=== PATIENT | male | born 1985 | race African-American/Black ===

== ENCOUNTER 2017-07-05 08:39 | Inpatient (IN) | payer MEDICAID ==
[~2017-07-05] VITALS: Ht 182.9 cm; Wt 99.0 kg
[2017-07-05] MEDS ORDERED: OLANZapine IM 10 MG VIAL IM ONE (08:45)
--- NOTE | 2017-07-05 09:01 | PD ---
HPI Chief Complaint: Medical Clearance Time Seen by Provider: 08:58 Travel History International Travel<30 days: No Contact w/Intl Traveler<30days: No Traveled to known affect area: No History of Present Illness HPI 31-year-old male with history of bipolar and schizophrenia, presents emergency department voluntarily for psychiatric evaluation. Patient states he has been using meth. He feels as though he is in the matrix. He states that he is tired of feeling weak and no longer wants to live. Denies any active plan of suicide to me however EVAC brine process operator advised that he had mentioned hanging. Patient states he last used methamphetamine 4 hours ago. Denies any chest pain or tightness. No difficulty breathing. He has no other acute medical needs at this time. [facility] Past Medical History Bipolar Disorder: Yes Social History Alcohol Use: Yes Tobacco Use: Yes Substance Use: Yes Allergies-Medications (Allergen,Severity, Reaction): Coded Allergies: No Known Allergies (Unverified , 07/05/17) Review of Systems Except as stated in HPI: all other systems reviewed are Neg Physical Exam Narrative GENERAL: Well-nourished male patient, with bizarre affect, agitated, in no acute distress. SKIN: Focused skin assessment warm/dry. HEAD: Atraumatic. Normocephalic. EYES: Pupils equal and round. No scleral icterus. No injection or drainage. ENT: No nasal bleeding or discharge. Mucous membranes pink and moist. NECK: Trachea midline. No JVD. CARDIOVASCULAR: Regular rate and rhythm. No murmur appreciated. RESPIRATORY: No accessory muscle use. Clear to auscultation. Breath sounds equal bilaterally. GASTROINTESTINAL: Abdomen soft, non-tender, nondistended. Hepatic and splenic margins not palpable. MUSCULOSKELETAL: No obvious deformities. No clubbing. No cyanosis. No edema. NEUROLOGICAL: Awake and alert. No obvious cranial nerve deficits. Motor grossly within normal limits. Normal speech. Data Data Last Documented VS Vital Signs Date Time Temp Pulse Resp B/P (MAP) Pulse Ox O2 Delivery O2 Flow Rate FiO2 07/05/17 11:25 78 16 126/71 (89) 99 Room Air 07/05/17 09:15 99.0 Orders Orders Complete Blood Count With Diff (07/05/17 08:44) Thyroid Stimulating Hormone (07/05/17 08:44) Basic Metabolic Panel (Bmp) (07/05/17 08:44) Psych Screen (07/05/17 08:44) Drug Screen, Random Urine (07/05/17 08:44) Alcohol (Ethanol) (07/05/17 08:44) Olanzapine Inj (Zyprexa Inj) (07/05/17 08:45) Labs Laboratory Tests Test 07/05/17 09:20 07/05/17 13:00 White Blood Count 7.4 TH/MM3 Red Blood Count 4.67 MIL/MM3 Hemoglobin 13.4 GM/DL Hematocrit 38.1 % Mean Corpuscular Volume 81.5 FL Mean Corpuscular Hemoglobin 28.7 PG Mean Corpuscular Hemoglobin Concent 35.2 % Red Cell Distribution Width 14.6 % Platelet Count 285 TH/MM3 Mean Platelet Volume 7.1 FL Neutrophils (%) (Auto) 58.8 % Lymphocytes (%) (Auto) 27.5 % Monocytes (%) (Auto) 12.5 % Eosinophils (%) (Auto) 0.5 % Basophils (%) (Auto) 0.7 % Neutrophils # (Auto) 4.4 TH/MM3 Lymphocytes # (Auto) 2.0 TH/MM3 Monocytes # (Auto) 0.9 TH/MM3 Eosinophils # (Auto) 0.0 TH/MM3 Basophils # (Auto) 0.0 TH/MM3 CBC Comment DIFF FINAL Differential Comment Blood Urea Nitrogen 10 MG/DL Creatinine 1.59 MG/DL Random Glucose 80 MG/DL Calcium Level 8.4 MG/DL Sodium Level 141 MEQ/L Potassium Level 3.2 MEQ/L Chloride Level 108 MEQ/L Carbon Dioxide Level 24.0 MEQ/L Anion Gap 9 MEQ/L Estimat Glomerular Filtration Rate 61 ML/MIN Thyroid Stimulating Hormone 3rd Gen 1.990 uIU/ML Ethyl Alcohol Level LESS THAN 3 MG/DL Urine Opiates Screen NEG Urine Barbiturates Screen NEG Urine Amphetamines Screen NEG Urine Benzodiazepines Screen NEG Urine Cocaine Screen NEG Urine Cannabinoids Screen NEG MDM Medical Decision Making Medical Screen Exam Complete: Yes Emergency Medical Condition: Yes Medical Record Reviewed: Yes Differential Diagnosis Substance-induced mood disorder versus acute psychosis versus substance abuse Narrative Course 31-year-old male presents emergency department voluntarily for psychiatric evaluation. Patient is agitated when he comes to the ER initially. Tells me he feels like he is in a movie. He last used methamphetamine 4 hours ago. Patient is given Zyprexa to help reduce agitation. Laboratory Tests Test 07/05/17 09:20 07/05/17 13:00 White Blood Count 7.4 TH/MM3 Red Blood Count 4.67 MIL/MM3 Hemoglobin 13.4 GM/DL Hematocrit 38.1 % Mean Corpuscular Volume 81.5 FL Mean Corpuscular Hemoglobin 28.7 PG Mean Corpuscular Hemoglobin Concent 35.2 % Red Cell Distribution Width 14.6 % Platelet Count 285 TH/MM3 Mean Platelet Volume 7.1 FL Neutrophils (%) (Auto) 58.8 % Lymphocytes (%) (Auto) 27.5 % Monocytes (%) (Auto) 12.5 % Eosinophils (%) (Auto) 0.5 % Basophils (%) (Auto) 0.7 % Neutrophils # (Auto) 4.4 TH/MM3 Lymphocytes # (Auto) 2.0 TH/MM3 Monocytes # (Auto) 0.9 TH/MM3 Eosinophils # (Auto) 0.0 TH/MM3 Basophils # (Auto) 0.0 TH/MM3 CBC Comment DIFF FINAL Differential Comment Blood Urea Nitrogen 10 MG/DL Creatinine 1.59 MG/DL Random Glucose 80 MG/DL Calcium Level 8.4 MG/DL Sodium Level 141 MEQ/L Potassium Level 3.2 MEQ/L Chloride Level 108 MEQ/L Carbon Dioxide Level 24.0 MEQ/L Anion Gap 9 MEQ/L Estimat Glomerular Filtration Rate 61 ML/MIN Thyroid Stimulating Hormone 3rd Gen 1.990 uIU/ML Ethyl Alcohol Level LESS THAN 3 MG/DL Urine Opiates Screen NEG Urine Barbiturates Screen NEG Urine Amphetamines Screen NEG Urine Benzodiazepines Screen NEG Urine Cocaine Screen NEG Urine Cannabinoids Screen NEG Lab work is reviewed. Patient is medically cleared to undergo psychiatric screening for further evaluation and disposition. Mental health screening discussed with the patient. Psychiatric screen ordered. Diagnosis Primary Impression: Substance induced mood disorder Condition: Stable Alexandria Jacobo ERNA July 05, 2017 09:01
[2017-07-05 09:15] VITALS: BP 139/62; PULSE 88; RESP 20; TEMP 99; O2SAT 100
[2017-07-05 09:43] LABS: AUTOMATED NEUTROPHIL # 4.4 TH/MM3 (1.8-7.7); BASOPHIL % 0.7 % (0.0-2.0); EOSINOPHIL % 0.5 % (0.0-4.0); HEMATOCRIT 38.1 % (39.0-51.0); HEMOGLOBIN 13.4 GM/DL (13.0-17.0); LYMPH % 27.5 % (9.0-44.0); MEAN CELL VOLUME 81.5 FL (80.0-100.0); MEAN CORPUSCULAR HEMOGLOBIN 28.7 PG (27.0-34.0); MEAN CORPUSCULAR HGB CONC 35.2 % (32.0-36.0); MEAN PLATELET VOLUME 7.1 FL (7.0-11.0); MONO % 12.5 % (0.0-8.0); MONOCYTE # 0.9 TH/MM3 (0-0.9); NEUT % 58.8 % (16.0-70.0); PLATELET COUNT 285 TH/MM3 (150-450); RED BLOOD COUNT 4.67 MIL/MM3 (4.50-5.90); RED CELL DISTRIBUTION WIDTH 14.6 % (11.6-17.2); WHITE BLOOD COUNT 7.4 TH/MM3 (4.0-11.0)
[2017-07-05 10:03] LABS: BLOOD UREA NITROGEN 10 MG/DL (7-18); CALCIUM 8.4 MG/DL (8.5-10.1); CHLORIDE 108 MEQ/L (98-107); CREATININE 1.59 MG/DL (0.60-1.30); GLOMERULAR FILTRATION RATE 61 ML/MIN (>89); GLUCOSE,RANDOM 80 MG/DL (74-106); SODIUM (NA) 141 MEQ/L (136-145)
[2017-07-05 11:25] VITALS: BP 126/71; PULSE 78; RESP 16; O2SAT 99
[2017-07-05 18:24] VITALS: BP 121/66; PULSE 56; RESP 18; O2SAT 98
[2017-07-05] MEDS ORDERED: ABIL15TA3 PO (19:35)
[2017-07-05] MEDS ORDERED: REME15TA PO (19:36)
[2017-07-05] MEDS ORDERED: diphenhydrAMINE HCL 50 MG/ML VIAL IM ONE (21:30)
[2017-07-05] MEDS ORDERED: ZIPRASIDONE MESYLATE 20 MG VIAL IM ONE (21:30)
[2017-07-06 02:31] VITALS: RESP 20
[2017-07-06 18:42] VITALS: BP 108/53; PULSE 54; RESP 17; TEMP 99; O2SAT 99
[2017-07-06 22:32] VITALS: BP 162/92; PULSE 95; RESP 20; TEMP 99.4; O2SAT 97
--- NOTE | 2017-07-07 13:53 | PD.PSY.CON ---
Provisional Diagnosis Admission Date [place] I. Unspecified psychosis vs substance-induced psychosis vs schizophrenia, [place] II. Deferred [place] III. No significant medical history History of Present Illness Service Psychiatry Consult Requested By ER Reason for Consult Acute psychosis Primary Care Physician No Primary Care Physician HPI The patient is a 31-year-old -Micron[place] man, domiciled in [place], visiting family [place], single, unemployed, with self-reported psychiatric history of depression, schizophrenia, 2 previous psychiatric hospitalizations, no previous suicide attempts, the patient using Abilify 15 mg and Remeron 15 mg prescribed by private psychiatrist in [place], who has being in [facility] [facility] multiple times in the last week with different psychiatric and medical complaints, he has been diagnosed with antisocial personality disorder and malingering, no significant medical history, presenting to emergency department voluntarily for psychiatric evaluation. Patient states he has been using meth. He feels as though he is in the matrix. He states that he is tired of feeling weak and no longer wants to live. Denies any active plan of suicide to me however EVAC business analyst advised that he had mentioned hanging. Patient states he last used methamphetamine 4 hours ago. Denies any chest pain or tightness. No difficulty breathing. He has no other acute medical needs at this time. Posteriorly the patient endorses suicidal ideation and he was Clark acted by ER physician. As per collateral information from nurses in the ER the patient has being internally preoccupied, talking to himself and disorganized. On my psychiatric evaluation today the patient is found talking to himself. Making weird noises with his mouth. Not able to answer any of my questions. With multiple redirection the patient look at me and told me "Doctor I am crazy ". Patient has not been agitated or aggressive. Review of Systems Constitutional: DENIES: Diaphoretic episodes, Fatigue, Fever, Weight gain, Weight loss, Chills, Dizziness, Change in appetite, Night Sweats Endocrine: DENIES: Heat/cold intolerance, Polydipsia, Polyuria, Polyphagia Eyes: DENIES: Blurred vision, Diplopia, Eye inflammation, Eye pain, Vision loss , Photosensitivity, Double Vision Ears, nose, mouth, throat: DENIES: Tinnitus, Hearing loss, Vertigo, Nasal discharge, Oral lesions, Throat pain, Hoarseness, Ear Pain, Running Nose, Epistaxis, Sinus Pain, Toothache, Odynophagia Respiratory: DENIES: Apneas, Cough, Snoring, Wheezing, Hemoptysis, Sputum production, Shortness of breath Cardiovascular: DENIES: Chest pain, Palpitations, Syncope, Dyspnea on Exertion , PND, Lower Extremity Edema, Orthopnea, Claudication Genitourinary: DENIES: Sexual dysfunction, Urinary frequency, Urinary incontinence, Urgency, Hematuria, Dysuria, Nocturia, Penile Discharge, Testicular Pain, Testicular Swelling Musculoskeletal: DENIES: Joint pain, Muscle aches, Stiffness, Joint Swelling, Back pain, Neck pain Integumentary: DENIES: Abnormal pigmentation, Nail changes, Pruritus, Rash Hematologic/lymphatic: DENIES: Bruising, Lymphadenopathy Immunologic/allergic: DENIES: Eczema, Urticaria Neurologic: DENIES: Abnormal gait, Headache, Localized weakness, Paresthesias, Seizures, Speech Problems, Tremor, Poor Balance Psychiatric: DENIES: Anxiety, Confusion, Mood changes, Depression, Hallucinations, Agitation, Suicidal Ideation, Homicidal Ideation, Delusions Past Family Social History Coded Allergies: No Known Allergies (Unverified , 07/05/17) Reported Medications Mirtazapine (Remeron) 15 Mg Tab, 15 MG PO HS for Depression Control, #30 TAB 0 Refills 07/05/17 Aripiprazole (Abilify) 15 Mg Tab, 15 MG PO DAILY, #30 TAB 0 Refills 07/05/17 Family Psych History No family psychiatric history Social History Patient was born and raised in [place], is visiting family in [place], unemployed, single, highest level of education is GED Patient's Strengths (min. 2) Under observation Physical Exam No tremors, no EPS, no psychomotor agitation or retardation Vital Signs Vital Signs Date Time Temp Pulse Resp B/P (MAP) Pulse Ox O2 Delivery O2 Flow Rate FiO2 07/06/17 22:32 99.4 95 20 162/92 (115) 97 Room Air Mental Status Examination Appearance: Appropriate Consciousness: Alert Orientation: Person Motor Activity: Normal gait Speech: Unremarkable Language: Adequate Fund of Knowledge: Adequate Attention and Concentration: Adequate Memory: Unremarkable Mood: Irritable Affect: Irritable Thought Process & Associations: Loose associations Thought Content: Bizarre thinking, Hallucinations, Thought blocking Hallucination Type: None Delusion Type: None Suicidal Ideation: No Suicidal Plan: No Suicidal Intention: No Homicidal Ideation: No Homicidal Plan: No Homicidal Intention: No Insight: Poor Judgment: Poor Assessment & Plan Problem List: (1) Unspecified psychosis ICD Codes: F29 - Unspecified psychosis not due to a substance or known physiological condition Assessment & Plan: Psychiatric evaluation today the patient presents quite disorganized, internally preoccupied, making weird noises with his mouth, not able to answer most of my questions. As per nursing report the patient has being mostly asleep, secluded in his room, talking to himself. No agitation or aggressive behavior reported. The patient has initially reported he has been using amphetamines lately, even though his U tox is negative. The patient has been visiting they are frequently in the last 10 days with different medical and psychiatric complaints. At this point is unclear to me if his current presentation is related with a primary psychotic decompensation versus substance -induced psychosis. But, conscious simulation also should be taken in account due to the nature and evolution of the presentation. Patient benefits of psychiatric hospitalization in a dual diagnosis psychiatric unit. He will be presented to [facility] for psychiatric hospitalization. Will order Haldol 5 mg twice daily for psychosis. Assessment & Plan Estimated LOS: Jacky Ponce MD July 07, 2017 13:53
[2017-07-07 15:16] VITALS: BP 145/87; PULSE 106; RESP 18; TEMP 99.4; O2SAT 99
[2017-07-07] MEDS ORDERED: IBUPROFEN 800 MG TAB PO ONE (16:00)
[2017-07-08] MEDS ORDERED: diphenhydrAMINE HCL 50 MG/ML VIAL IM ONE (00:15)
[2017-07-08] MEDS ORDERED: HALOPERIDOL LACTATE 5 MG/ML AMP IM ONE (00:15)
[2017-07-08 05:23] VITALS: BP 128/58; PULSE 94; RESP 18; O2SAT 98
--- NOTE | 2017-07-08 08:21 | HHI.HP ---
Provisional Diagnosis Admission Date 07/08/2017 [place] I. 1. Adjustment disorder, unspecified Very strongly suspect malingering, most likely for penitentiary 2. Suspected substance (alcohol, methamphetamine) use disorder Bart[place] II. 1. Prominent antisocial personality traits Antisocial personality disorder suspected Certification of Person's Competence To Provide Express and Informed Consent I have personally examined Arden Barker , a person being served at [facility] on, July 08, 2017 08:20. Express and informed consent means consent voluntarily given in writing, by a competent person, after sufficient explanation and disclosure of the subject matter involved to enable the person to make a knowing and willful decision without any element of force, fraud, deceit, duress, or other form of constraint or coercion. This person is 18 years of age or older, is not now known to be incompetent to consent to treatment with a guardian advocate, and does not have a health care surrogate or proxy currently making medical treatment decisions. I have found this person to be one of the following: [x] Competent to provide express and informed consent, as defined above, for voluntary admission to this facility and is competent to provide express and informed consent for treatment. He/she has the consistent capacity to make well reasoned, willful, and knowing decisions concerning his or her medical or mental health treatment. The person fully and consistently understands the purpose of the admission for examination/placement and is fully capable of personally exercising all rights assured under [place] Incompetent to provide express and informed consent to voluntary admission, and this is incompetent to provide express and informed consent to treatment. The person must be transferred to involuntary status and a petition for a guardian advocate filed with the Circuit Court. [] Refusing to provide express and informed consent to voluntary admission but is competent to provide express and informed consent for treatment. The person must be discharged or transferred to involuntary status. Form shall be completed within 24 hours of a person's arrival at the receiving facility and filed in the clinical record of each person: 1. Admitted on a voluntary basis 2. Permitted to provide express and informed consent to his/her own treatment 3. Allowed to transfer from involuntary to voluntary status 4. Prior to permitting a person to consent to his or her own treatment after having been previously found incompetent to consent to treatment. History of Present Illness Capacity: Has Capacity Psych Chief Complaint: Threats of self-injury HPI Mr. Barker is a 31 year-old male with a self-reported history of schizophrenia and a chart history of antisocial personality, malingering and substance use issues who presented to the ED claiming recent methamphetamine ingestion (although UTox was negative). He told the ED provider that "he is tired of feeling weak and no longer wants to live." He was Clark Acted by the ED provider. He was seen in consultation by Dr. Contreras who recommended transfer to a dual diagnosis unit. At the time of my evaluation, the patient has been in the ED for ~70 hours, and no suitable facility has been identified. EMR reviewed. Patient seen and examined in J-Pod. Chart reviewed. Case discussed with nursing staff. Patient received Haldol and Benadryl IM overnight for reported agitation, although a corresponding nursing note that would indicate the exact nature of the agitation is not available for my review. At the time of my evaluation, patient is calm. He is a quite manipulative and vague historian. Antisocial personality traits are extremely prominent, and a diagnosis of Antisocial PD is suspected. He is entitled and dictating of care. He tells me that he wants me to get him a different room. He tells me he wants to be admitted and "take it day by day." He wishes to speak with a social worker psychiatric about obtaining housing. He has a dearth of psychiatric symptoms. He tells me that he is "feeling paranoid, like I'm gonna hang up." He reports having thoughts of jumping off of a bridge. He does not describe any urge to hurt himself on the inpatient psychiatric unit. He does not describe any homicidal ideation. He does not describe any audiovisual hallucinations, nor does he appear internally stimulated. I can elicit no srinivas gretta delusional material. I can elicit no depressive or hypomanic/manic symptoms, although his affect is somewhat dysphoric. Remainder of the psychiatric ROS is negative. No acute physical complaints. Past psychiatric history: The patient reports a history of schizophrenia. He follows with Dr. Mcarthur in [facility]. He reports that he was hospitalized about 6 months ago at a psychiatric facility on [address]. He reports a previous suicide attempt of cutting his left wrist with a razor, reportedly 2 days ago. However, I cannot appreciate any evidence of laceration or even a scratch in the area he demonstrates. Family history: Patient denies a family history of mental illness or suicide. Chemical dependency history: Patient reports that he is an occasional drinker, sometimes as much as a pint of liquor on a weekend. He reports possible history of withdrawal seizures but denies any history of DTs. He does not report any other substance use to me but have reported methamphetamine use to the ED provider as noted above. Social history: The patient moved from [place] 2 or 3 months ago by his report and is without stable housing in this area. He is not . He has 2 children. He has a GED. He reports that he received some sort of public assistance and otherwise has no income. He reports that has some legal entanglement related to battery charges and otherwise denies legal issues. He denies access to guns or firearms. When asked about his shinto kim, he replies "I believe in Muslims." After the patient arrives on the inpatient unit, I responded to a Code Almeida called on this patient. Upon arrival, I find the patient irate and yelling at staff through the nursing station [facility]. Patient's nurse apprises me that patient is alleging that some of his belongings have been misplaced. These items are readily located, but the patient remains querulous and threatening. I have ordered Haldol, Ativan and Benadryl ETO. I try to engage with the patient directly, and he lays hands on me. In context, patient's behavior does not seem to have a basis in psychosis or other Bartley I condition but rather seems to be acting out in the setting of his antisocial personality. I have discussed the behavioral expectations of the unit with the patient and have explained that this sort of acting out behavior is not acceptable. Review of Systems Except as stated in HPI: all other systems reviewed are Neg Past Family Social History Coded Allergies: No Known Allergies (Unverified , 07/05/17) Past Medical History Reports chronic back pain. Otherwise, denies PMH. Reported Medications Mirtazapine (Remeron) 15 Mg Tab, 15 MG PO HS for Depression Control, #30 TAB 0 Refills 07/05/17 Aripiprazole (Abilify) 15 Mg Tab, 15 MG PO DAILY, #30 TAB 0 Refills 07/05/17 Patient reports he is adherent with psychotropic medications as noted above. Patient's Strengths (min. 2) Able to access clinical care. Attending to basic needs. Physical Exam Physical examination completed by the ED provider. On my examination today, the patient appears to be in no acute physical distress. No signs of intoxication or withdrawal noted. No motor abnormalities noted. As noted above , I cannot appreciate any evidence of self injury in the area demonstrated by the patient. There is no other visible evidence of trauma or self injury. Labs and vitals reviewed: Vital Signs Vital Signs Date Time Temp Pulse Resp B/P (MAP) Pulse Ox O2 Delivery O2 Flow Rate FiO2 07/08/17 05:23 94 18 128/58 (81) 98 Room Air 07/07/17 15:16 99.4 Lab Results Item Value Date Time White Blood Count 7.4 TH/MM3 07/05/17 0920 Hemoglobin 13.4 GM/DL 07/05/17 0920 Platelet Count 285 TH/MM3 07/05/17 0920 Sodium Level 141 MEQ/L 07/05/17 0920 Potassium Level 3.2 MEQ/L L 07/05/17 0920 Chloride Level 108 MEQ/L H 07/05/17 0920 Carbon Dioxide Level 24.0 MEQ/L 07/05/17 0920 Blood Urea Nitrogen 10 MG/DL 07/05/17 0920 Creatinine 1.59 MG/DL H 07/05/17 0920 Estimat Glomerular Filtration Rate 61 ML/MIN L 07/05/17 0920 Thyroid Stimulating Hormone 3rd Gen 1.990 uIU/ML 07/05/17 0920 Urine Opiates Screen NEG 07/05/17 1300 Urine Barbiturates Screen NEG 07/05/17 1300 Urine Amphetamines Screen NEG 07/05/17 1300 Urine Benzodiazepines Screen NEG 07/05/17 1300 Urine Cocaine Screen NEG 07/05/17 1300 Urine Cannabinoids Screen NEG 07/05/17 1300 Ethyl Alcohol Level LESS THAN 3 MG/DL 07/05/17 0920 Mental Status Examination Appearance: Appropriate Consciousness: Alert Orientation: Person, Place (At least) Motor Activity: Other (No motor abnormalities noted) Speech: Unremarkable Language: Adequate Fund of Knowledge: Adequate Attention and Concentration: Adequate Memory: Unremarkable Mood: Other (Dysphoric) Affect: Irritable, Other (Restricted, consistent with mood) Thought Process & Associations: Intact, Logical, Linear Thought Content: Appropriate Hallucination Type: None Delusion Type: Paranoid (self-reported) Suicidal Ideation: Yes (Manipulative threats) Suicidal Plan: Yes (To jump off a bridge) Suicidal Intention: No (No reported urge to hurt self on the inpatient unit) Homicidal Ideation: No Homicidal Plan: No Homicidal Intention: No Mental Status Exam Remarks Insight and judgment are likely chronically poor Assessment & Plan Problem List: (1) Adjustment disorder ICD Codes: F43.20 - Adjustment disorder, unspecified (2) Antisocial personality traits Assessment & Plan 31-year-old male with psychiatric history as detailed above presently being held in the ED under a Clark act initiated by ED provider. Clark Act will shortly. Patient's presentation on my examination is overwhelmingly antisocial and manipulative. I do not appreciate any evidence of srinivas gretta mental illness as defined under the Clark Act. However, in light of patient's ongoing manipulative suicidal threats, his agitation overnight requiring Haldol IM (the exact nature of which is unclear to me), and our relative paucity of history with this patient, I think it is most prudent at this juncture to admit the patient for observation. Since we have not had success with getting the patient to a dual diagnosis unit, I will admit him here. Admit inpatient. Voluntary status. I will resume patient's reported home Abilify and Remeron with a modest dose titration on the Abilify to 20mg to target reported paranoia. Atarax as needed for anxiety, Cogentin as needed for EPS, Benadryl as needed for sleep. R/B/A for medications reviewed with patient. CIWA with Ativan for the management of any GABAergic withdrawal. Thiamine and folate. Seizure precautions. Check CMP. Check HgbA1c and lipid panel in the morning. Check EKG for QTc. Vitals every shift. Counselor to see. Collateral information as able. Disposition planning. Estimated length of stay: 2-3 days. Discharge Planning Pending outcome of observation. Request HC Surrog/Guard Advoc?: No Problem Qualifiers (1) Adjustment disorder: Qualified Codes: F43.20 - Adjustment disorder, unspecified Vito López MD July 08, 2017 08:21
[2017-07-08] MEDS ORDERED: BENZTROPINE MESYLATE 1 MG TAB PO PRN (08:30)
[2017-07-08] MEDS ORDERED: hydrOXYzine HCL 50 MG TAB PO PRN (08:30)
[2017-07-08] MEDS ORDERED: MAGNESIUM HYDROXIDE SUSP 30 ML CUP PO PRN (08:30)
[2017-07-08] MEDS ORDERED: NICOTINE 4 MG/GUM CHEW PRN (08:30)
[2017-07-08] MEDS ORDERED: BENZTROPINE MESYLATE 2 MG/2 ML VIAL IM PRN (08:30)
[2017-07-08] MEDS ORDERED: ALUMINUM/MAGNESIUM/SIMETH 30 ML CUP PO PRN (08:30)
[2017-07-08] MEDS ORDERED: ACETAMINOPHEN 325 MG TAB PO PRN (08:30)
[2017-07-08] MEDS ORDERED: LORazepam 2 MG/ML VIAL IM STA (12:12)
[2017-07-08] MEDS ORDERED: diphenhydrAMINE HCL 50 MG/ML VIAL IM STA (12:12)
[2017-07-08] MEDS ORDERED: HALOPERIDOL LACTATE 5 MG/ML AMP IM STA (12:12)
[2017-07-08] MEDS ORDERED: LORazepam 1 MG TAB PO PRN (13:15)
[2017-07-08] MEDS ORDERED: LORazepam 2 MG TAB PO PRN (13:15)
[2017-07-08] MEDS ORDERED: LORazepam 2 MG/ML VIAL IV PUSH PRN ×4 (13:15)
[2017-07-08] MEDS ORDERED: FLUMAZENIL 0.5 MG/5 ML VIAL IV PUSH PRN (13:15)
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
[2017-07-08] MEDS ORDERED: diphenhydrAMINE HCL 50 MG CAP PO PRN (21:00)
[2017-07-08] MEDS ORDERED: MIRTAZAPINE 15 MG TAB PO SCH (21:00)
[2017-07-09] MEDS ORDERED: FOLIC ACID 1 MG TAB PO SCH (09:00)
[2017-07-09] MEDS ORDERED: MULTIVITAMINS/MINERALS THERAPEUTIC TAB PO SCH (09:00)
[2017-07-09] MEDS ORDERED: THIAMINE HCL 100 MG TAB PO SCH (09:00)
--- NOTE | 2017-07-09 22:32 | EKG ---
Date Performed: 07/08/2017 Time Performed: 16:01:28 PTAGE: 31 years EKG: Sinus rhythm WITH SINUS ARRHYTHMIA NORMAL ECG NO PREVIOUS TRACING DOCTOR: Mesfin Stacy Interpretating Date/Time 07/09/2017 22:31:50
== END 2017-07-08 17:40 | disposition home or self-care (01) | DRG 951 ==
LOC: NEPD 08:39 → NEDA 07-08 08:16 → H270 07-08 12:05
PROVIDERS: ADMIT Psychiatry & Neurology Psychiatry; ATTEND Psychiatry & Neurology Psychiatry
DX: Z76.5 Malingerer [conscious simulation] (principal); F60.2 Antisocial personality disorder; R45.851 Suicidal ideations; Z59.0 Homelessness; M54.9 Dorsalgia, unspecified; G89.29 Other chronic pain; Z72.0 Tobacco use
CPT/HCPCS: 80048; 80307; 84443; 85025; 93005; 96372; J1200; J1630; J3486